=== PATIENT | female | born 1975 | race American Indian/Alaskan Native ===

== ENCOUNTER 2016-02-13 07:14 | Outpatient (CLI) | payer OTHER ==
--- NOTE | 2016-02-13 10:44 | Ultrasound Report ---
ULTRASOUND ABDOMEN LIMITED: INDICATION: Abnormal results of liver function studies. COMPARISON: None similar at this institution. FINDINGS: Right upper quadrant sonography suggests slight diffuse hepatic echogenic coarsening with grossly preserved contours. No definite focal suspicious lesions or biliary dilatation. Cholecystectomy. Common bile duct is 4.2 mm. Pancreatic tail obscured due to bowel gas. Normal remainder imaged pancreas, IVC and nonaneurysmal abdominal aorta. Right kidney approximately 10.5 x 4.8 x 4.8 cm with cortical thickness of 1.3 cm. Borderline/slight increased renal cortical echogenicity possible. No hydronephrosis. CONCLUSION: Cholecystectomy with slight hepatic coarsening/fatty infiltration and subtle underlying medical renal disease not entirely excluded, as described. Please correlate. Thank you for the opportunity to participate in this patient's care.
== END 2016-02-13 07:15 | disposition home or self-care (01) ==
LOC: US 07:14
PROVIDERS: ATTEND Internal Medicine
DX: K76.0 Fatty (change of) liver, not elsewhere classified (principal); R94.5 Abnormal results of liver function studies; Z90.49 Acquired absence of other specified parts of digestive tract
CPT/HCPCS: 76705